=== PATIENT | male | born 2000 | race Caucasian/White ===

== ENCOUNTER 2023-03-09 13:41 | Emergency (ER) | payer OTHER ==
[~2023-03-09] VITALS: Ht 182.9 cm; Wt 80.9 kg
[2023-03-09 13:46] VITALS: TEMP 97.6
[2023-03-09] MEDS ORDERED: EPIPEN 2-PAK1 MG/ML IM (15:23)
[2023-03-09 15:35] VITALS: BP 137/64; PULSE 66
== END 2023-03-09 15:35 | disposition home or self-care (01) ==
LOC: COL.ER 13:41
DX: T78.40XA Allergy, unspecified, initial encounter (principal); Z28.311 Partially vaccinated for COVID-19
CPT/HCPCS: J1100; J7030